=== PATIENT | male | born 1980 | race Asian ===

== ENCOUNTER 2023-01-26 20:18 | Emergency (ER) | payer SELFPAY ==
--- NOTE | ~2023-01-26 | XR_ITS ---
EXAMINATION: XR knee RT min 4V DATE: 01/27/2023 02:09 INDICATION: Right knee pain and swelling TECHNIQUE: Four views of the right knee were obtained. COMPARISON: None. FINDINGS: Alignment is normal. No fracture or osteochondral lesion. Joint spaces are normal with no e rosions. There is a small knee joint effusion. Soft tissues are unremarkable. IMPRESSION: 1. Small knee joint effusion without acute osseous abnormality. Reviewed, dictated and finalized at location A.
[2023-01-26 20:21] VITALS: BP 145/91; PULSE 86; RESP 19; TEMP 37.1; O2SAT 98
[2023-01-26 23:12] VITALS: BP 142/102; PULSE 59; TEMP 36.4; O2SAT 100
[2023-01-26 23:38] VITALS: PULSE 71; RESP 16; O2SAT 100
[2023-01-26 23:45] VITALS: PULSE 70; RESP 21; O2SAT 99
[2023-01-27] VITALS: PULSE 65; RESP 18; O2SAT 100
[2023-01-27 00:15] VITALS: PULSE 68; RESP 14; O2SAT 100
[2023-01-27 00:16] VITALS: BP 139/95; PULSE 70; RESP 14; O2SAT 100
[2023-01-27 00:17] VITALS: PULSE 67; RESP 13; O2SAT 100
--- NOTE | 2023-01-27 00:48 | ED.EXTPRO ---
HPI - Extremity Problem General Chief complaint: Extremity Problem,Nontraumatic <Maritza Engel PA-C - Last Filed: 01/27/23 03:33> Stated complaint: extremity pain <Maritza Engel PA-C - Last Filed: 01/27/23 03:33> Time Seen by Provider: 01/26/23 23:58 <Maritza Engel PA-C - Last Filed: 01/27/23 03:33> Source: patient <MAIKOL Nunez Last Filed: 01/27/23 03:33> Mode of arrival: ambulatory <Maritza Engel PA-C - Last Filed: 01/27/23 03:33> Limitations: no limitations <Maritza Engel PA-C - Last Filed: 01/27/23 03:33> History of Present Illness HPI Narrative: This is a 42-year-old male that presents to the emergency department for right knee pain. Ongoing over the last several months. Reports he recently had a right hip replacement. Reports pain on both sides of his knee. Also reports the pain radiates into his ankle. No recent injuries or trauma. Reports some swelling of the knee. Denies decreased range of motion or numbness. <Maritza Engel PA-C - Last Filed: 01/27/23 03:33> Related Data Allergies/Adverse reactions: Allergies Allergy/AdvReac Type Severity Reaction Status Date / Time hydrocodone Allergy Rash Verified 01/27/23 00:14 <Maritza Engel PA-C - Last Filed: 01/27/23 03:33> Review of Systems Review of Systems: CONSTITUTIONAL: Denies fever SKIN: Denies rash MUSCULOSKELETAL: Reports joint pain, and myalgia. NEUROLOGIC: Denies numbness, or weakness. <Maritza Engel PA-C - Last Filed: 01/27/23 03:33> All systems reviewed & are unremarkable except as noted in HPI and below <Maritza Engel PA-C - Last Filed: 01/27/23 03:33> [facility] Past Medical History Medical History: Medical History (Updated 01/27/23 @ 03:30 by Maritza Engel PA-C) No active medical problems <Maritza Engel PA-C - Last Filed: 01/27/23 03:33> Social History Social History: Social History (Updated 01/27/23 @ 00:50 by Maritza Engel PA-C) Smoking status: Current every day smoker <Maritza Engel PA-C - Last Filed: 01/27/23 03:33> Exam Narrative: GENERAL: Well-appearing, well-nourished, and in no acute distress. HEAD: Normocephalic, atraumatic. EYES: EOMI. CHEST: Clear to auscultation. No respiratory distress. No wheezes rales or rhonchi HEART: Regular rate and rhythm. No murmur heard. Normal peripheral pulses. EXTREMITIES: Normal range of motion. No edema or erythema of the knee. Normal DP pulse. Normal sensation. Mild swelling of the right lower leg SKIN: Warm, dry, no rash. NEURO: No focal deficits. Alert and oriented x3. PSYCH: Normal mood and affect <Maritza Engel PA-C - Last Filed: 01/27/23 03:33> Course Course Emergency Course: Patient was updated on workup and agrees with plan of care <Maritza Engel PA-C - Last Filed: 01/27/23 03:33> F[employer] MATCHER/PA Physician Supervision This is a was performed by both a physician and an APC. I performed all aspects of the MDM as documented w/ the following additions: 42-year-old male presenting with knee pain. X-rays negative. Found have an elevated D-dimer and recent surgery. Patient was given an order for an ultrasound in the morning. All questions answered. Patient in agreement w/ disposition. <Dante Morejon MD - Last Filed: 01/27/23 06:38> Vital Signs Vital signs: Vital Signs Temperature 98.7 F 01/26/23 20:21 Pulse Rate 86 01/26/23 20:21 Respiratory Rate 19 01/26/23 20:21 Blood Pressure 145/91 H 01/26/23 20:21 Pulse Oximetry 98 01/26/23 20:21 Oxygen Delivery Room Air 01/26/23 20:21 Temperature 97.5 F L 01/26/23 23:12 Pulse Rate 90 01/27/23 02:00 Respiratory Rate 12 01/27/23 02:00 Blood Pressure 129/88 01/27/23 02:00 Pulse Oximetry 100 01/27/23 02:00 Oxygen Delivery Room Air 01/26/23 20:21 <Maritza Engel PA-C - Last Filed: 01/27/23 03:33> Vital Signs Temperature 98.7 F 01/26/23 20:21 Puls
[2023-01-27 01:06] LABS: Basophils Percent Auto 0.3 % (0.2-1.2); Eosinophils Absolute Auto 0.2 K/mm3 (0-0.3); Eosinophils Percent Auto 2.1 % (0-4.4); Hematocrit 46.8 % (42.0-52.0); Hemoglobin 14.4 g/dL (14.0-18.0); Immature Granulocyte Absolute 0.02 K/mm3 (0.00-0.031); Immature Granulocyte Percent A 0.2 % (0-0.5); Lymphocytes Absolute Auto 2.31 K/mm3 (0.9-3.2); Lymphocytes Percent Auto 26.5 % (18.3-44.2); Mean Corpuscular HGB Conc 30.8 g/dl (32-36); Mean Corpuscular Hemoglobin 26.1 pg (26-34); Mean Corpuscular Volume 84.9 fl (80-100); Mean Platelet Volume 10.6 fl (7.4-10.4); Monocytes Absolute Auto 0.9 K/mm3 (0.1-0.6); Monocytes Percent Auto 10.4 % (2.6-8.5); Neutrophils Absolute Auto 5.3 K/mm3 (1.3-6.7); Neutrophils Percent Auto 60.5 % (45.5-73.1); Platelet Count Result 248 k/mm3 (150-375); Red Blood Count 5.51 M/mm3 (4.6-6.20); Red Cell Distribution Width 15.1 % (11.5-14.5); White Blood Count 8.7 K/mm3 (4.5-10.0)
[2023-01-27 01:22] LABS: Anion Gap 4 mmol/L (8-16); Blood Urea Nitrogen 16 mg/dL (9-20); Calcium 9.5 mg/dL (8.4-10.2); Carbon Dioxide 30 mmol/L (22-30); Chloride 107 mmol/L (98-107); Estimated CRCL calculation 105 ml/min; Estimated Glomerular Filt Rate > 60; Glucose 95 mg/dL (65-110); Magnesium 2.2 mg/dL (1.6-2.3); Potassium 4.7 mmol/L (3.4-5.0); Sodium 141 mmol/L (137-145)
[2023-01-27 01:37] LABS: Prothrombin Time 13.8 Seconds (11.1-14.7)
[2023-01-27 01:38] LABS: Partial Thromboplastin Time 28.8 SECONDS (22.3-36.8)
[2023-01-27 02:00] VITALS: BP 129/88; PULSE 90; RESP 12; O2SAT 100
[2023-01-27 02:00] LABS: D Dimer 0.67 ug/mL (<0.48)
[2023-01-27] MEDS: ENOXAPARIN 100 MG/ML SYRINGE 85 MG SUB-Q (03:36)
== END 2023-01-27 03:35 | disposition home or self-care (01) ==
PROVIDERS: Emergency Provider Physician Assistant
DX: M25.561 Pain in right knee (principal); R79.1 Abnormal coagulation profile; F17.200 Nicotine dependence, unspecified, uncomplicated; Z96.641 Presence of right artificial hip joint
CPT/HCPCS: 36415; 73564; 80048; 83735; 85025; 85380; 85610; 85730; 96372; 99283; J1650